=== PATIENT | female | born 1955 | race Caucasian/White ===

== ENCOUNTER 2017-08-09 15:38 | Inpatient (IN) | payer OTHER ==
[~2017-08-09] VITALS: Ht 167.6 cm; Wt 101.2 kg
[~2017-08-09 15:38] MED LIST: DYAZIDE 25 MG-31 CAP PO; PREVACID30 MG PO; PYRIDIUM200 MG PO; VIBRAMYCIN100 MG PO; VICODIN 500 MG-1 TAB PO
[2017-08-09 16:10] VITALS: BP 143/97
[2017-08-09 16:51] LABS: BASO # 0.1 10*3/uL (0.0-0.1); BASO % 0.6 % (0.0-1.0); EOS # 0.1 10*3/uL (0.0-0.4); EOS % 0.9 % (1.0-4.0); HEMATOCRIT 51.7 % (37.0-47.0); HEMOGLOBIN 18.3 g/dl (12.0-16.0); LYMPH # 1.9 10*3/uL (1.3-4.4); LYMPH % 13.9 % (27.0-41.0); MEAN CELL VOLUME 89.6 fl (81.0-99.0); MEAN CORPUSCULAR HGB 31.7 pg (27.0-31.0); MEAN CORPUSCULAR HGB CONC 35.4 g/dl (33.0-37.0); MEAN PLATELET VOLUME 11.2 fl (9.6-12.3); MONO # 0.6 10*3/uL (0.1-1.0); MONO % 4.4 % (3.0-9.0); NEUT # 10.8 10*3/uL (2.3-7.9); NEUT % 79.7 % (47.0-73.0); PLATELET COUNT AUTOMATED 194 10*3/uL (130-400); RED BLOOD COUNT 5.77 10*6/uL (4.10-5.10); WHITE BLOOD COUNT 13.5 10*3/uL (4.8-10.8)
[2017-08-09 17:07] LABS: ALBUMIN 3.8 gm/dl (3.1-4.5); CREATININE 1.24 mg/dL (0.55-1.02); POTASSIUM 3.6 mmol/L (3.5-5.1); TOTAL PROTEIN 8.6 gm/dL (6.4-8.2)
--- NOTE | 2017-08-09 21:00 | NUR ---
A 61 YO FEMALE, admitted to , under the services of ARGENTINA Adkins DO with a diagnosis of ELEVATED BP, ACUTE RENAL INSUFFICIENCY, PARTIAL SM BOWEL OBSTRUCTION, CHOLELITHIASIS. Chief complaint is ABD PAIN. Patient arrived via ambulatory from ER. Monitor applied. Initial assessment completed. Vital signs taken and recorded. ARGENTINA ADKINS DO notified of admission to the unit. Orders received. See assessment for past medical history, medications and allergies. Patient and/or family oriented to unit. [facility] visitation policy reviewed. Clothing/patient valuable form completed. MEDS REVIEWED WITH MARISSA GIMENEZ
--- NOTE | 2017-08-09 21:29 | NUR ---
DR. BULLARD NOTIFIED OF PT MED LIST UPDATED.
[2017-08-10] VITALS: BP 107/91; BP 128/72
[2017-08-10 06:32] LABS: BASO # 0.1 10*3/uL (0.0-0.1); BASO % 0.7 % (0.0-1.0); EOS # 0.1 10*3/uL (0.0-0.4); EOS % 1.9 % (1.0-4.0); HEMATOCRIT 46.1 % (37.0-47.0); LYMPH # 2.3 10*3/uL (1.3-4.4); LYMPH % 30.2 % (27.0-41.0); MEAN CORPUSCULAR HGB 31.6 pg (27.0-31.0); MEAN CORPUSCULAR HGB CONC 33.6 g/dl (33.0-37.0); MEAN PLATELET VOLUME 11.4 fl (9.6-12.3); MONO # 0.4 10*3/uL (0.1-1.0); MONO % 5.7 % (3.0-9.0); NEUT # 4.6 10*3/uL (2.3-7.9); NEUT % 61.1 % (47.0-73.0); PLATELET COUNT AUTOMATED 144 10*3/uL (130-400); RED CELL DISTRI WIDTH 13.5 % (0-14.5); WHITE BLOOD COUNT 7.5 10*3/uL (4.8-10.8)
[2017-08-10 06:36] LABS: HEMOGLOBIN 15.5 g/dl (12.0-16.0); MEAN CELL VOLUME 94.1 fl (81.0-99.0)
[2017-08-10 06:57] LABS: ALBUMIN 3.1 gm/dl (3.1-4.5); ALKALINE PHOSPHATASE 98 U/L (45-117); BUN 12 mg/dl (7-24); CHLORIDE 106 mmol/L (98-107); CHOLESTEROL 197 mg/dL (<200); CREATININE 1.01 mg/dL (0.55-1.02); FREE T4 1.14 ng/dl (0.76-1.46); HDL CHOLESTEROL 28 mg/dl (40-60); LDL CHOLESTEROL 112 mg/dL (9-159); MAGNESIUM 2.3 mg/dL (1.5-2.1); PHOSPHOROUS 3.7 mg/dL (2.5-4.9); POTASSIUM 3.7 mmol/L (3.5-5.1); SGOT/AST 24 IU/L (3-35); SODIUM 142 mmol/L (136-145); TOTAL PROTEIN 7.1 gm/dL (6.4-8.2); TRIGLYCERIDES 284 mg/dl (<150); VLDL CHOLESTEROL 57 mg/dL (6-40)
[2017-08-10 07:02] LABS: SGPT/ALT 26 U/L (12-78); THYROID STIM HORMONE (HS) 0.705 uIU/ml (0.358-4.75)
[2017-08-10 07:08] LABS: ACT PARTIAL THROMBO TIME 23.5 SECONDS (20.8-31.5)
[2017-08-10 07:33] LABS: VITAMIN D, 25-HYDROXY 23.1 ng/mL (30-100)
--- NOTE | 2017-08-10 07:54 | NUR ---
Shift chart check completed.
[2017-08-10 08:00] VITALS: BP 127/64
--- NOTE | 2017-08-10 09:00 | NUR ---
case management attempted to visit with patient, patient was with doctor at this time, will see later today
[2017-08-10 12:00] VITALS: BP 120/58
[2017-08-10 16:00] VITALS: BP 152/79
--- NOTE | 2017-08-10 19:30 | NUR ---
ASSUMED CARE OF PT AT THIS TIME, RESPS EASY AND NONLABORED WITH NO S/S OF DISTRESS, CALL LIGHT WITH IN REACH
[2017-08-10 20:00] VITALS: BP 139/68
[2017-08-11] VITALS (8 sets, daily range): BP systolic 120–197; BP diastolic 68–97
[2017-08-11 07:30] LABS: BUN 7 mg/dl (7-24); CHLORIDE 110 mmol/L (98-107); CREATININE 0.94 mg/dL (0.55-1.02); POTASSIUM 3.6 mmol/L (3.5-5.1); SODIUM 145 mmol/L (136-145)
--- NOTE | 2017-08-11 09:00 | NUR ---
Clinical Laboratory Scientist in to talk to patient. Patient states lives at home with . There are few steps in the home. Physician: grady tapia [facility] [place] health services: none Patient's level of ADLs: INDEPENDENT Patient has working utilities: all working DME: none Follow-up physician's appointment after d/c: will be made by hospitalist nurse director upn discharge Does patient want to access PORTAL?: no Discharge plan discussed with patient, present, patient states she lives at home with her and has many family members to help, she states she is independent in adls and ambulation, patient having surgery today and states she will be going home when able, discussed with her VNA and she refused any services at this time. DONN MCNEAL
[2017-08-11] MEDS ORDERED: VITAMIN D31000 UNI1 PO (14:58)
[2017-08-11] MEDS ORDERED: VICODIN 5-3001 EACH PO (15:08)
[2017-08-11] MEDS ORDERED: Zofran4 MG SL (15:08)
--- NOTE | 2017-08-11 15:47 | NUR ---
Discharge instructions reviewed with patient/family. Patient receptive and verbalizes understanding. Follow-up care arranged. Written instructions given to patient/family. NAI MUSE
== END 2017-08-11 15:47 | disposition home or self-care (01) | DRG 853 ==
LOC: ED 15:38 → 5E 20:09 → EDHOLD 20:09 → 5E 20:19
PROVIDERS: Hospitalist; Internal Medicine; Nurse Practitioner Family; ADMIT Internal Medicine
PROC: 0FT44ZZ Resection of Gallbladder, Percutaneous Endoscopic Approach (ICD-10-PCS; principal; 2017-08-11)
DX: A41.9 Sepsis, unspecified organism (principal); N17.0 Acute kidney failure with tubular necrosis; K56.69 Other intestinal obstruction; K80.18 Calculus of gallbladder with other cholecystitis without obstruction; I10 Essential (primary) hypertension; E66.09 Other obesity due to excess calories; K21.9 Gastro-esophageal reflux disease without esophagitis; K76.0 Fatty (change of) liver, not elsewhere classified; Z88.0 Allergy status to penicillin; Z88.8 Allergy status to other drugs, medicaments and biological substances; Z79.899 Other long term (current) drug therapy; Z83.3 Family history of diabetes mellitus; Z90.710 Acquired absence of both cervix and uterus; Z68.36 Body mass index [BMI] 36.0-36.9, adult

== ENCOUNTER → 2017-10-18 | Day surgery (SDC) | payer OTHER ==
[~2017-10-18] VITALS: Ht 167.6 cm; Wt 88.9 kg
[~2017-10-18] MED LIST changes: +VICODIN 5-3001 EACH PO; +VITAMIN D31000 UNI1 PO; +Zofran4 MG SL
[2017-10-18 07:22] VITALS: BP 146/71
[2017-10-18 08:32] VITALS: BP 103/45
[2017-10-18 08:48] VITALS: BP 132/74
[2017-10-18 09:04] VITALS: BP 142/70
== END | disposition home or self-care (01) ==
LOC: SDC 10-12 08:00
DX: K29.50 Unspecified chronic gastritis without bleeding (principal); K63.89 Other specified diseases of intestine; K44.9 Diaphragmatic hernia without obstruction or gangrene; K22.2 Esophageal obstruction; K21.0 Gastro-esophageal reflux disease with esophagitis; K29.80 Duodenitis without bleeding; I10 Essential (primary) hypertension; F17.210 Nicotine dependence, cigarettes, uncomplicated; Z90.710 Acquired absence of both cervix and uterus; Z88.0 Allergy status to penicillin; Z88.8 Allergy status to other drugs, medicaments and biological substances; K64.8 Other hemorrhoids

== ENCOUNTER 2018-04-02 13:54 | Emergency (ER) | payer OTHER ==
[~2018-04-02] VITALS: Ht 165.1 cm; Wt 81.2 kg
[2018-04-02 13:58] VITALS: BP 133/67
[2018-04-02 14:22] LABS: BILIRUBIN NEGATIVE (NEGATIVE); BLOOD 1+ (NEGATIVE); CLARITY CLOUDY (CLEAR); COLOR YELLOW (YELLOW); GLUCOSE NEGATIVE (NEGATIVE); KETONE NEGATIVE (NEGATIVE); LEUKO ESTERASE 3+ (NEGATIVE); NITRITE NEGATIVE (NEGATIVE); SPECIFIC GRAVITY <= 1.005 (1.005-1.030)
[2018-04-02 14:28] LABS: BASO % 0.2 % (0.0-1.0); HEMOGLOBIN 11.9 g/dl (12.0-16.0); LYMPH # 0.8 10*3/uL (1.3-4.4); LYMPH % 13.9 % (27.0-41.0); MEAN CORPUSCULAR HGB 33.3 pg (27.0-31.0); MEAN PLATELET VOLUME 10.5 fl (9.6-12.3); MONO # 0.4 10*3/uL (0.1-1.0); MONO % 6.3 % (3.0-9.0); NEUT # 4.5 10*3/uL (2.3-7.9); NEUT % 79.2 % (47.0-73.0); PLATELET COUNT AUTOMATED 104 10*3/uL (130-400); RED BLOOD COUNT 3.57 10*6/uL (4.10-5.10); RED CELL DISTRI WIDTH 13.6 % (0-14.5); WHITE BLOOD COUNT 5.7 10*3/uL (4.8-10.8)
[2018-04-02 14:35] LABS: WBC TNTC wbc/hpf (0-5)
[2018-04-02 14:45] LABS: ALBUMIN 2.8 gm/dl (3.1-4.5); ALKALINE PHOSPHATASE 136 U/L (45-117); BUN 13 mg/dl (7-24); CHLORIDE 95 mmol/L (98-107); POTASSIUM 3.1 mmol/L (3.5-5.1); SGOT/AST 26 IU/L (3-35); SGPT/ALT 21 U/L (12-78); SODIUM 132 mmol/L (136-145); TOTAL PROTEIN 7.2 gm/dL (6.4-8.2)
[2018-04-02 14:47] LABS: TROPONIN I < 0.015 ng/ml (<0.045)
[2018-04-02 15:53] VITALS: BP 130/70
[2018-04-02] MEDS ORDERED: TRIAMTERENE-HC1 EACH PO (16:47)
[2018-04-02] MEDS ORDERED: LISINOPRIL5 MG PO (16:47)
[2018-04-02 17:50] VITALS: BP 128/68
[2018-04-02 18:36] VITALS: BP 117/65
== END 2018-04-02 22:14 | disposition admitted as inpatient to this hospital (09) ==
LOC: ED 13:54 → EDHOLD 15:28 → ED 16:22 → EDHOLD 16:22 → 5E 16:34 → EDHOLD 16:34 → 5E 16:34 → ED 22:14
PROVIDERS: Emergency Medicine; Nurse Practitioner Family
DX: N39.0 Urinary tract infection, site not specified (principal); A41.9 Sepsis, unspecified organism; K21.9 Gastro-esophageal reflux disease without esophagitis; Z90.710 Acquired absence of both cervix and uterus; Z88.0 Allergy status to penicillin; Z88.8 Allergy status to other drugs, medicaments and biological substances

== ENCOUNTER 2019-10-29 12:40 | Inpatient (IN) | payer OTHER ==
[~2019-10-29] VITALS: Ht 165.1 cm; Wt 96.2 kg
[2019-10-29 12:40] VITALS: BP 116/53
[~2019-10-29 12:40] MED LIST changes: +LISINOPRIL5 MG PO; +TRIAMTERENE-HC1 EACH PO
[2019-10-29 13:24] LABS: ACT PARTIAL THROMBO TIME 31.2 SECONDS (20.0-32.1); INTERNATIONAL NORM RATIO 1.1 (2.0-3.5)
[2019-10-29 13:28] LABS: ALBUMIN 2.9 gm/dl (3.1-4.5); ALKALINE PHOSPHATASE 96 U/L (45-117); BUN 16 mg/dl (7-24); CHLORIDE 93 mmol/L (98-107); CREATININE 1.49 mg/dL (0.55-1.02); LIPASE 95 U/L (73-393); POTASSIUM 2.8 mmol/L (3.5-5.1); SGOT/AST 56 IU/L (3-35); SGPT/ALT 37 U/L (12-78); SODIUM 128 mmol/L (136-145); TOTAL PROTEIN 7.4 gm/dL (6.4-8.2)
[2019-10-29 13:33] LABS: TROPONIN I < 0.015 ng/ml (<0.045)
[2019-10-29 13:58] LABS: HEMATOCRIT 39.6 % (37.0-47.0); HEMOGLOBIN 14.1 g/dl (12.0-16.0); MEAN CELL VOLUME 108.2 fl (81.0-99.0); MEAN CORPUSCULAR HGB 38.5 pg (27.0-31.0); MEAN CORPUSCULAR HGB CONC 35.6 g/dl (33.0-37.0); MEAN PLATELET VOLUME 10.7 fl (9.6-12.3); PLATELET COUNT AUTOMATED 76 10*3/uL (130-400); RED BLOOD COUNT 3.66 10*6/uL (4.10-5.10); RED CELL DISTRI WIDTH 13.2 % (0-14.5); WHITE BLOOD COUNT 4.5 10*3/uL (4.8-10.8)
[2019-10-29 14:00] VITALS: BP 109/61
[2019-10-29 14:26] LABS: BASOPHILS 1 % (0-1); PLATELET SUFFICIENCY LOW (NORMAL); TOTAL CELLS COUNTED 100 #CELLS
[2019-10-29 14:42] LABS: BILIRUBIN NEGATIVE (NEGATIVE); BLOOD TRACE-LYSED (NEGATIVE); CLARITY SL CLOUDY (CLEAR); COLOR YELLOW (YELLOW); GLUCOSE NEGATIVE (NEGATIVE); KETONE NEGATIVE (NEGATIVE); LEUKO ESTERASE 1+ (NEGATIVE); NITRITE POSITIVE (NEGATIVE); PH 5.5 (5.0-9.0); SPECIFIC GRAVITY 1.015 (1.005-1.030); UROBILINOGEN 0.2 E.U./dl (0.2-1.0)
[2019-10-29 14:48] LABS: BACTERIA 4+; MUCOUS 1+; WBC TNTC wbc/hpf (0-5)
--- NOTE | 2019-10-29 15:35 | NUR ---
per dr mccoy ok to hang another bag of fluids with iv potassium
[2019-10-29] MEDS ORDERED: ANASTROZOLE1 M1 PO (16:15)
[2019-10-29] MEDS ORDERED: KLOR-CON M1010 ME1 PO (16:16)
[2019-10-29] MEDS ORDERED: IBRANCE125 MG PO (16:16)
[2019-10-29 16:18] VITALS: BP 102/48
[2019-10-29 16:30] VITALS: BP 121/56
--- NOTE | 2019-10-29 16:30 | NUR ---
A 63, admitted to , under the services of ARGENTINA Adkins DO with a diagnosis of ACUTE KIDNEY INJURY, NAUSEA/VOMITING/DIARRHEA. Chief complaint is CHILLS, DIARRHEA, WEAKNESS. Patient arrived via bed from ER. Monitor applied. Initial assessment completed. Vital signs taken and recorded. ARGENTINA ADKINS DO notified of admission to the unit. Orders received. See assessment for past medical history, medications and allergies. Patient and/or family oriented to unit. [facility] visitation policy reviewed. Clothing/patient valuable form completed. MIKE DELGADO
--- NOTE | 2019-10-29 18:43 | NUR ---
PT RESTING AT THIS TIME. IV FLUIDS INFUSING. NO NEEDS VOICED.
[2019-10-29 20:00] VITALS: BP 109/61
--- NOTE | 2019-10-29 20:05 | NUR ---
REPORT GIVEN TO DEMAR MOLINA ON THE 5TH FLOOR.
--- NOTE | 2019-10-29 20:33 | NUR ---
ASSUMED CARE OF PATIENT AT THIS TIME. TEMP 100.9 ORALLY. TYLENOL 650 MG GIVEN FOR FEVER. DENIES COMPLAINTS OF PAIN OR DISCOMFORT AT THIS TIME. RESPIRATION REGULAR AND NON-LABORED ON ROOM AIR. LUNGS CLEAR AND DIMINISHED. NS INFUSING AT 125 CC/HR WITHOUT DIFFICULTY. WILL CONTINUE TO MONITOR. CALL LIGHT IN REACH.
[2019-10-30] VITALS: BP 100/45
--- NOTE | 2019-10-30 | NUR ---
TYLENOL EFFECTIVE. TEMP 99.3 AT THIS TIME. DENIES COMPLAINTS OF PAIN OR DISCOMFORT. AROUSES TO VERBAL STIMULI. WILL CONTINUE TO MONITOR. CALL LIGHT IN REACH.
--- NOTE | 2019-10-30 03:00 | NUR ---
MEDICATED WITH TYLENOL FOR TEMP OF 101.9.
[2019-10-30 06:22] LABS: HEMOGLOBIN 13.7 g/dl (12.0-16.0); MEAN CELL VOLUME 110.8 fl (81.0-99.0); MEAN CORPUSCULAR HGB 38.9 pg (27.0-31.0); MEAN CORPUSCULAR HGB CONC 35.1 g/dl (33.0-37.0); MEAN PLATELET VOLUME 10.8 fl (9.6-12.3); PLATELET COUNT AUTOMATED 79 10*3/uL (130-400); RED BLOOD COUNT 3.52 10*6/uL (4.10-5.10); RED CELL DISTRI WIDTH 13.5 % (0-14.5); WHITE BLOOD COUNT 4.7 10*3/uL (4.8-10.8)
[2019-10-30 06:34] LABS: ALBUMIN 2.9 gm/dl (3.1-4.5); ALKALINE PHOSPHATASE 93 U/L (45-117); BUN 12 mg/dl (7-24); CHLORIDE 102 mmol/L (98-107); CHOLESTEROL 139 mg/dL (<200); CREATININE 1.09 mg/dL (0.55-1.02); FREE T4 1.25 ng/dl (0.76-1.46); HDL CHOLESTEROL 10 mg/dl (40-60); LDL CHOLESTEROL 73 mg/dL (9-159); POTASSIUM 3.3 mmol/L (3.5-5.1); SGOT/AST 52 IU/L (3-35); SGPT/ALT 34 U/L (12-78); SODIUM 135 mmol/L (136-145); TOTAL PROTEIN 7.2 gm/dL (6.4-8.2); TRIGLYCERIDES 280 mg/dl (<150); VLDL CHOLESTEROL 56 mg/dL (6-40)
[2019-10-30 06:39] LABS: THYROID STIM HORMONE (HS) 0.752 uIU/ml (0.358-4.75)
[2019-10-30 06:57] LABS: PLATELET SUFFICIENCY LOW (NORMAL); TOTAL CELLS COUNTED 100 #CELLS
[2019-10-30 06:58] LABS: POLYCHROMASIA SLIGHT
[2019-10-30 07:07] LABS: ACT PARTIAL THROMBO TIME 29.6 SECONDS (20.0-32.1)
[2019-10-30 08:00] VITALS: BP 107/60
--- NOTE | 2019-10-30 08:00 | NUR ---
TOOK OVER CARE OF PT AT THIS TIME. PT RESTING IN BED. IV FLUIDS INFUSING. RESPIRATIONS EASY AND UNLABORED ON ROOM AIR. NO S/S OF DISTRESS NOTED. ALL NEEDS ARE MET AT THIS TIME. PT DENIES SHORTNESS OF BREATH. CALL LIGHT IN REACH, SAFETY MEASURES IN PLACE.
[2019-10-30 08:47] LABS: VITAMIN D, 25-HYDROXY 12.6 ng/mL (30-100)
[2019-10-30 12:00] VITALS: BP 118/72
[2019-10-30 16:00] VITALS: BP 135/70
[2019-10-30] MEDS ORDERED: CIPRO500 MG PO (16:13)
--- NOTE | 2019-10-30 16:23 | NUR ---
Waiter/Waitress Counter in to talk to patient. Patient states lives at HOME with AND DAUGHTER. There are OUTSIDE steps in the home. Physician: AZUCENA Pharmacy: [facility] Home health services: NONE Patient's level of ADLs: INDEPENDENT Patient has working utilities: YES DME: NONE Follow-up physician's appointment after d/c: WILL BE MADE BY HOSPITALIST NURSE DIRECTOR ON DISCHARGE Does patient want to access PORTAL?: NO Discharge plan PT LIVES AT HOME WITH HER AND DAUGHTER AND IS INDEPENDENT IN HER CARE. DENIES THAT SHE WILL HAVE NEEDS AT HOME ON DISCHARGE. STATES SHE WILL RETURN HOME WHEN MEDICALLY STABLE. WILL TRANSPORT HER HOME. WILL CONTINUE TO FOLLOW.. TAMARA ESCOBAR
--- NOTE | 2019-10-30 17:36 | NUR ---
IV REMOVED DISCHARGE INSTRUCTIONS GIVEN TO PATIENT. PATIENT OFF FLOOR WITH . Discharge instructions reviewed with patient/family. Patient receptive and verbalizes understanding. Follow-up care arranged. Written instructions given to patient/family. JACQUELINE BENITES
== END 2019-10-30 17:36 | disposition home or self-care (01) | DRG 391 ==
LOC: ED 12:40 → 5E 14:57 → EDHOLD 14:57 → 4E 15:53 → 5E 20:16
PROVIDERS: Emergency Medicine; Hospitalist; ADMIT Internal Medicine
DX: K52.9 Noninfective gastroenteritis and colitis, unspecified (principal); N17.0 Acute kidney failure with tubular necrosis; N39.0 Urinary tract infection, site not specified; E87.1 Hypo-osmolality and hyponatremia; E87.2 Acidosis; E44.0 Moderate protein-calorie malnutrition; C79.51 Secondary malignant neoplasm of bone; Z68.45 Body mass index [BMI] 70 or greater, adult; I10 Essential (primary) hypertension; K21.9 Gastro-esophageal reflux disease without esophagitis; D53.9 Nutritional anemia, unspecified; K76.0 Fatty (change of) liver, not elsewhere classified; E87.6 Hypokalemia; R00.0 Tachycardia, unspecified; D72.819 Decreased white blood cell count, unspecified; E66.9 Obesity, unspecified; R73.9 Hyperglycemia, unspecified; Z88.0 Allergy status to penicillin; Z88.8 Allergy status to other drugs, medicaments and biological substances; Z90.710 Acquired absence of both cervix and uterus; Z90.49 Acquired absence of other specified parts of digestive tract; Z79.899 Other long term (current) drug therapy

== ENCOUNTER 2020-09-20 09:27 | Emergency (ER) | payer OTHER ==
[~2020-09-20] VITALS: Ht 165.1 cm; Wt 90.7 kg
[~2020-09-20 09:27] MED LIST changes: +AFINITOR10 MG PO; +ALL DAY ALLERGY10 M2 PO; +ANASTROZOLE1 M1 PO; +CIPRO500 MG PO; +FLUTICASONE P15.8 ML NAS; +IBRANCE125 MG PO; +IBU800 M1 PO; +IMODIUM MULTI-1 EACH PO; +KLOR-CON M1010 ME1 PO; +LEVOFLOXACIN500 MG PO; +MELATONIN10 M2 PO; +PROCHLORPERAZIN10 MG PO; +SMZ/TMP DS 800-160
[2020-09-20 09:53] LABS: BASO % 0.8 % (0.0-1.0); EOS # 0.2 10*3/uL (0.0-0.4); EOS % 3.7 % (1.0-4.0); HEMATOCRIT 46.1 % (37.0-47.0); LYMPH # 1.3 10*3/uL (1.3-4.4); LYMPH % 24.9 % (27.0-41.0); MEAN CELL VOLUME 90.9 fl (81.0-99.0); MEAN CORPUSCULAR HGB 31.2 pg (27.0-31.0); MEAN CORPUSCULAR HGB CONC 34.3 g/dl (33.0-37.0); MONO # 0.5 10*3/uL (0.1-1.0); MONO % 10.3 % (3.0-9.0); NEUT # 3.1 10*3/uL (2.3-7.9); NEUT % 60.1 % (47.0-73.0); PLATELET COUNT AUTOMATED 116 10*3/uL (130-400); RED BLOOD COUNT 5.07 10*6/uL (4.10-5.10); RED CELL DISTRI WIDTH 14.9 % (0-14.5); WHITE BLOOD COUNT 5.2 10*3/uL (4.8-10.8)
[2020-09-20 10:26] LABS: ALBUMIN 3.2 gm/dl (3.1-4.5); CREATININE 1.17 mg/dL (0.55-1.02); TOTAL PROTEIN 7.1 gm/dL (6.4-8.2)
[2020-09-20 10:27] LABS: POTASSIUM 2.9 mmol/L (3.5-5.1)
[2020-09-20 10:41] LABS: BILIRUBIN Negative (Negative); BLOOD Negative (Negative); CLARITY Clear (Clear); COLOR Yellow (Yellow); GLUCOSE 3+ (Negative); KETONE Negative (Negative); LEUKO ESTERASE Negative (Negative); NITRITE Negative (Negative); SPECIFIC GRAVITY 1.015 (1.001-1.030)
[2020-09-20 10:52] LABS: BACTERIA 2+
[2020-09-20 11:01] VITALS: BP 138/80
[2020-09-20] MEDS ORDERED: K-TAB20 MEQ PO (11:34)
== END 2020-09-20 11:57 | disposition home or self-care (01) ==
LOC: ED 09:27
PROVIDERS: Nurse Practitioner Family
DX: E87.6 Hypokalemia (principal); I10 Essential (primary) hypertension; K21.9 Gastro-esophageal reflux disease without esophagitis; Z88.0 Allergy status to penicillin; Z88.8 Allergy status to other drugs, medicaments and biological substances; Z79.899 Other long term (current) drug therapy; Z79.2 Long term (current) use of antibiotics

== ENCOUNTER 2020-09-28 09:22 | Inpatient (IN) | payer OTHER ==
[2020-09-28] VITALS (7 sets, daily range): BP systolic 126–130; BP diastolic 76–90
[~2020-09-28] VITALS: Ht 165.1 cm; Wt 91.2 kg
[~2020-09-28 09:22] MED LIST changes: +K-TAB20 MEQ PO
[2020-09-28 09:51] LABS: BASO % 0.3 % (0.0-1.0); EOS % 0.3 % (1.0-4.0); HEMATOCRIT 44.6 % (37.0-47.0); LYMPH # 1.4 10*3/uL (1.3-4.4); LYMPH % 14.8 % (27.0-41.0); MEAN CELL VOLUME 89.2 fl (81.0-99.0); MEAN CORPUSCULAR HGB 29.8 pg (27.0-31.0); MEAN CORPUSCULAR HGB CONC 33.4 g/dl (33.0-37.0); MEAN PLATELET VOLUME 11.4 fl (9.6-12.3); MONO # 0.9 10*3/uL (0.1-1.0); MONO % 9.3 % (3.0-9.0); NEUT # 6.9 10*3/uL (2.3-7.9); NEUT % 74.9 % (47.0-73.0); PLATELET COUNT AUTOMATED 107 10*3/uL (130-400); RED CELL DISTRI WIDTH 15.4 % (0-14.5); WHITE BLOOD COUNT 9.2 10*3/uL (4.8-10.8)
[2020-09-28] MEDS ORDERED: TRESIBA100 UNIT/1 SQ (10:00)
[2020-09-28] MEDS ORDERED: OZEMPIC0.25 MG/01 SQ (10:01)
[2020-09-28 10:03] LABS: ACT PARTIAL THROMBO TIME 25.6 SECONDS (20.0-32.1); INTERNATIONAL NORM RATIO 1.1 (2.0-3.5)
[2020-09-28 10:09] LABS: ALBUMIN 2.2 gm/dl (3.1-4.5); ALKALINE PHOSPHATASE 182 U/L (45-117); BUN 10 mg/dl (7-24); CHLORIDE 87 mmol/L (98-107); POTASSIUM 2.6 mmol/L (3.5-5.1); SGOT/AST 59 IU/L (3-35); SGPT/ALT 38 U/L (12-78); SODIUM 130 mmol/L (136-145); TOTAL PROTEIN 7.7 gm/dL (6.4-8.2)
[2020-09-28 10:10] LABS: TROPONIN I < 0.015 ng/ml (<0.045)
[2020-09-28] MEDS ORDERED: OMEPRAZOLE MAGN20 MG PO (10:10)
[2020-09-28] MEDS ORDERED: PROCHLORPERAZIN10 MG PO (10:13)
[2020-09-28] MEDS ORDERED: METFORMIN HCL500 M2 PO (10:13)
--- NOTE | 2020-09-28 12:15 | NUR ---
AWAITING IV POTASSIUM MEDICATION FROM PHARMACY.
--- NOTE | 2020-09-28 12:35 | NUR ---
WAITING FOR IV POTASSIUM FROM PHARMACY.
[2020-09-28 14:25] LABS: BILIRUBIN Negative (Negative); BLOOD 2+ (Negative); CLARITY Turbid (Clear); COLOR Yellow (Yellow); GLUCOSE 3+ (Negative); KETONE 1+ (Negative); LEUKO ESTERASE 3+ (Negative); NITRITE Positive (Negative); SPECIFIC GRAVITY >= 1.030 (1.001-1.030)
[2020-09-28 14:38] LABS: BACTERIA 2+; WBC TNTC wbc/hpf (0-5)
--- NOTE | 2020-09-28 22:14 | NUR ---
PT RESTING QUIETLY IN BED. MEDICATED PER EMAR. RESP EASY AND NONLABORED ON ROOM AIR. IVF INFUSING PER ORDERS. NO COMPLAINTS AT THIS TIME.
[2020-09-29] VITALS (7 sets, daily range): BP systolic 120–150; BP diastolic 58–81
--- NOTE | 2020-09-29 00:57 | NUR ---
THE PATIENT IS RESTING ON THE BED. CALL LIGHT IS ATTACHED TO THE BED. NO NEW VOICE C/O.
--- NOTE | 2020-09-29 03:02 | NUR ---
PATIENT AMBULATORY TO THE RESTROOM AT THIS TIME. NO DISTRESS NOTED. STEADY GAIT. RN WILL CONT TO MONITOR
--- NOTE | 2020-09-29 04:17 | NUR ---
PATIENT AMBULATORY TO THE RESTROOM AT THIS TIME. NO DISTRESS NOTED. STEADY GAIT. RN WILL CONT TO MONITOR
--- NOTE | 2020-09-29 05:54 | NUR ---
PATIENT GIVEN WATER AND MORNING MEDS. AOX3. NO DISTRESS NOTED. RN WILL CONT TO MONITOR
[2020-09-29 06:17] LABS: HEMATOCRIT 41.6 % (37.0-47.0); MEAN CELL VOLUME 91.2 fl (81.0-99.0); MEAN CORPUSCULAR HGB 29.6 pg (27.0-31.0); MEAN CORPUSCULAR HGB CONC 32.5 g/dl (33.0-37.0); MEAN PLATELET VOLUME 12.3 fl (9.6-12.3); PLATELET COUNT AUTOMATED 125 10*3/uL (130-400); RED BLOOD COUNT 4.56 10*6/uL (4.10-5.10); WHITE BLOOD COUNT 5.8 10*3/uL (4.8-10.8)
[2020-09-29 06:30] LABS: CHLORIDE 95 mmol/L (98-107); POTASSIUM 3.3 mmol/L (3.5-5.1); SODIUM 131 mmol/L (136-145)
[2020-09-29 06:41] LABS: ALKALINE PHOSPHATASE 159 U/L (45-117); BUN 16 mg/dl (7-24); CREATININE 0.97 mg/dL (0.55-1.02); FREE T4 1.51 ng/dl (0.76-1.46); SGOT/AST 34 IU/L (3-35); SGPT/ALT 31 U/L (12-78); THYROID STIM HORMONE (HS) 0.096 uIU/ml (0.358-4.75); TOTAL PROTEIN 6.7 gm/dL (6.4-8.2)
[2020-09-29 07:59] LABS: TOTAL CELLS COUNTED 100 #CELLS
[2020-09-29 08:00] LABS: PLATELET SUFFICIENCY LOW (NORMAL)
--- NOTE | 2020-09-29 08:55 | NUR ---
A 64, F admitted to , under the services of EMEKA Parks DO with a diagnosis of COPD. Chief complaint is SOB X 3 DAYS. Patient arrived via bed from ER. Monitor applied. Initial assessment completed. Vital signs taken and recorded. EMEKA PARKS DO notified of admission to the unit. Orders received. See assessment for past medical history, medications and allergies. Patient and/or family oriented to unit. [facility] visitation policy reviewed. Clothing/patient valuable form completed. CHIOMA MORALES
--- NOTE | 2020-09-29 12:00 | NUR ---
RESTING IN BED. NO ACUTE DISTRESS NOTED. RESPIRATIONS EASY. VSS. IV FLUIDS INFUSING. CALL LIGHT WITHIN REACH
--- NOTE | 2020-09-29 13:35 | NUR ---
[facility] CRITICAL, STAT REFLEX ORDERED [id number]. DR JAVIER CONTACTED AND INFORMED. WILL MONITOR
--- NOTE | 2020-09-29 18:48 | NUR ---
PROVIDED WITH MOTRIN FOR C/O GEN ACHES AND PAIN. WILL MONITOR
[2020-09-30] VITALS: BP 110/57
[2020-09-30 06:08] LABS: EOS % 0.1 % (1.0-4.0); HEMATOCRIT 39.7 % (37.0-47.0); LYMPH # 1.2 10*3/uL (1.3-4.4); LYMPH % 15.7 % (27.0-41.0); MEAN CELL VOLUME 90.6 fl (81.0-99.0); MEAN CORPUSCULAR HGB 30.1 pg (27.0-31.0); MEAN CORPUSCULAR HGB CONC 33.2 g/dl (33.0-37.0); MEAN PLATELET VOLUME 11.7 fl (9.6-12.3); MONO # 0.5 10*3/uL (0.1-1.0); MONO % 6.7 % (3.0-9.0); NEUT # 6.1 10*3/uL (2.3-7.9); NEUT % 77.2 % (47.0-73.0); PLATELET COUNT AUTOMATED 152 10*3/uL (130-400); RED BLOOD COUNT 4.38 10*6/uL (4.10-5.10); RED CELL DISTRI WIDTH 14.9 % (0-14.5); WHITE BLOOD COUNT 7.9 10*3/uL (4.8-10.8)
[2020-09-30 06:10] LABS: BUN 16 mg/dl (7-24); CHLORIDE 102 mmol/L (98-107); CREATININE 0.81 mg/dL (0.55-1.02); POTASSIUM 3.3 mmol/L (3.5-5.1); SODIUM 139 mmol/L (136-145)
[2020-09-30 08:00] VITALS: BP 128/68
--- NOTE | 2020-09-30 09:00 | NUR ---
Wrecker Driver in to talk to patient. Patient states lives at home with . There are 3 steps in the home. Physician: antwon patterson [facility] [place] [facility]: none Patient's level of ADLs: INDEPENDENT Patient has working utilities: all working DME: none Follow-up physician's appointment after d/c: will be made by hospitalist nurse director upon discharge Does patient want to access PORTAL?: no Discharge plan discussed with patient, she states she lives at home with her and her daughter. she states she is independent in adls and ambulation, she states she will return home when discharged and denies any home needs, case managenent will follow. patient states she is a discharge for today. DONN MCNEAL
[2020-09-30] MEDS ORDERED: CIPRO500 MG PO (11:28)
--- NOTE | 2020-09-30 11:51 | NUR ---
Discharge instructions reviewed with patient/family. Patient receptive and verbalizes understanding. Follow-up care arranged. Written instructions given to patient/family. CHIOMA BEEBE
== END 2020-09-30 11:51 | disposition home or self-care (01) | DRG 871 ==
LOC: ED 09:22 → EDHOLD 11:05 → 4E 11:05
PROVIDERS: Emergency Medicine; Family Medicine; Internal Medicine; Nurse Practitioner Family; ADMIT Internal Medicine; ATTEND Internal Medicine
DX: A41.9 Sepsis, unspecified organism (principal); J18.9 Pneumonia, unspecified organism; N17.0 Acute kidney failure with tubular necrosis; E43 Unspecified severe protein-calorie malnutrition; E87.1 Hypo-osmolality and hyponatremia; C79.51 Secondary malignant neoplasm of bone; N39.0 Urinary tract infection, site not specified; N12 Tubulo-interstitial nephritis, not specified as acute or chronic; J44.1 Chronic obstructive pulmonary disease with (acute) exacerbation; J44.0 Chronic obstructive pulmonary disease with (acute) lower respiratory infection; R65.20 Severe sepsis without septic shock; E87.6 Hypokalemia; N18.32 Chronic kidney disease, stage 3b; E80.6 Other disorders of bilirubin metabolism; E87.8 Other disorders of electrolyte and fluid balance, not elsewhere classified; R74.01 Elevation of levels of liver transaminase levels; D69.6 Thrombocytopenia, unspecified; K21.9 Gastro-esophageal reflux disease without esophagitis; K44.9 Diaphragmatic hernia without obstruction or gangrene; C50.912 Malignant neoplasm of unspecified site of left female breast; I12.9 Hypertensive chronic kidney disease with stage 1 through stage 4 chronic kidney disease, or unspecified chronic kidney disease; E83.39 Other disorders of phosphorus metabolism; E05.90 Thyrotoxicosis, unspecified without thyrotoxic crisis or storm; B96.89 Other specified bacterial agents as the cause of diseases classified elsewhere; Z90.49 Acquired absence of other specified parts of digestive tract; Z90.710 Acquired absence of both cervix and uterus; Z82.49 Family history of ischemic heart disease and other diseases of the circulatory system; Z88.0 Allergy status to penicillin; Z88.8 Allergy status to other drugs, medicaments and biological substances; Z79.899 Other long term (current) drug therapy; Z79.84 Long term (current) use of oral hypoglycemic drugs; Z68.33 Body mass index [BMI] 33.0-33.9, adult

== ENCOUNTER → 2021-01-17 | Outpatient (CLI) | payer OTHER ==
[~2021-01-17] MED LIST changes: +METFORMIN HCL500 M2 PO; +OMEPRAZOLE MAGN20 MG PO; +OZEMPIC0.25 MG/01 SQ; +TRESIBA100 UNIT/1 SQ
== END | disposition home or self-care (01) ==
LOC: CT 13:00
PROVIDERS: ATTEND Internal Medicine Hematology & Oncology
DX: R19.00 Intra-abdominal and pelvic swelling, mass and lump, unspecified site (principal); I82.90 Acute embolism and thrombosis of unspecified vein; C50.412 Malignant neoplasm of upper-outer quadrant of left female breast; L27.0 Generalized skin eruption due to drugs and medicaments taken internally; M89.9 Disorder of bone, unspecified; N63.21 Unspecified lump in the left breast, upper outer quadrant; Z51.11 Encounter for antineoplastic chemotherapy

== ENCOUNTER 2022-06-01 16:00 | Emergency (ER) | payer MEDICARE ==
[~2022-06-01] VITALS: Ht 165.1 cm; Wt 62.7 kg
[2022-06-01 16:49] LABS: BILIRUBIN 2+ (Negative); BLOOD 1+ (Negative); CLARITY Turbid (Clear); COLOR Red (Yellow); GLUCOSE Trace (Negative); KETONE Negative (Negative); LEUKO ESTERASE 3+ (Negative); NITRITE Positive (Negative); UROBILINOGEN 0.2 E.U./dl (0.0-1.0)
[2022-06-01 16:50] LABS: HEMATOCRIT 35.3 % (37.0-47.0); MANUAL DIFF REFLEX YES; MEAN CELL VOLUME 85.7 fl (81.0-99.0); MEAN CORPUSCULAR HGB 28.9 pg (27.0-31.0); MEAN CORPUSCULAR HGB CONC 33.7 g/dl (33.0-37.0); MEAN PLATELET VOLUME 11.3 fl (9.6-12.3); NUCLEATED RED BLOOD CELL 0.1 10*3/uL (0.0-0.0); NUCLEATED RED BLOOD CELL 1.1 % (0.0-0.0); PLATELET COUNT AUTOMATED 147 10*3/uL (130-400); RED BLOOD COUNT 4.12 10*6/uL (4.10-5.10); WHITE BLOOD COUNT 8.5 10*3/uL (4.8-10.8)
[2022-06-01 16:56] LABS: PH 6.5 (4.5-8.0)
[2022-06-01 17:10] LABS: CREATININE 1.48 mg/dL (0.55-1.02); TOTAL PROTEIN 7.1 gm/dL (6.4-8.2)
[2022-06-01 17:13] LABS: BACTERIA 1+; RBC TNTC rbc/hpf (0-2); WBC 31-40 wbc/hpf (0-5)
[2022-06-01 17:18] LABS: PLATELET SUFFICIENCY NORMAL (NORMAL); TOTAL CELLS COUNTED 100 #CELLS
[2022-06-01 17:25] LABS: BURR CELLS FEW
[2022-06-02 06:50] VITALS: BP 106/52
== END 2022-06-02 07:58 | disposition short-term general hospital (02) ==
LOC: ED 16:00
PROVIDERS: Emergency Medicine
DX: N39.0 Urinary tract infection, site not specified (principal); R18.8 Other ascites; K21.9 Gastro-esophageal reflux disease without esophagitis; I12.9 Hypertensive chronic kidney disease with stage 1 through stage 4 chronic kidney disease, or unspecified chronic kidney disease; N18.30 Chronic kidney disease, stage 3 unspecified; Z88.0 Allergy status to penicillin; Z88.8 Allergy status to other drugs, medicaments and biological substances; Z79.899 Other long term (current) drug therapy; Z90.49 Acquired absence of other specified parts of digestive tract; Z90.710 Acquired absence of both cervix and uterus; Z90.89 Acquired absence of other organs; F17.200 Nicotine dependence, unspecified, uncomplicated